=== PATIENT | male | born 1985 | race Caucasian/White ===

== ENCOUNTER 2023-07-28 14:06 | Emergency (ER) | payer OTHER, SELFPAY ==
--- NOTE | ~2023-07-28 | XR_ITS ---
EXAMINATION: XR chest 2V Exam Date/Time: 07/28/2023 14:22 AUDIO NARRATOR HISTORY: cough, congestion Comparison: 01/12/2015. RESULT: Lines, tubes, and devices: None. Lungs and pleura: Moderate diffuse reticulonodular opacities. Segmental left lower lobe airspace dis ease. Left costophrenic angle blunting. Cardiomediastinal silhouette: Stable. Other: No acute osseous or upper abdominal finding. IMPRESSION: Respiratory bronchiolitis. Segmental left lower lobe atelectasis/consolidation. Small left pleural ef fusion. Reviewed, dictated and finalized at location K. O NARRATOR IMPRESSION: Respiratory bronchiolitis. Segmental left lower lobe atelectasis/consolidation. Small left pleural effusion.
[2023-07-28 14:21] VITALS: BP 120/67; PULSE 94; RESP 18; TEMP 36.8; O2SAT 91
--- NOTE | 2023-07-28 14:54 | ED.URI ---
HPI - URI/Sore Throat General Chief Complaint: Upper Respiratory Infection Stated Complaint: Cough,Congestion Source: patient and family (Mother) Mode of arrival: ambulatory Limitations: no limitations History of Present Illness HPI Narrative: 37-year-old male presents to [facility] accompanied by his mother for complaints of cough, fatigue, shortness of breath and wheezing for the past 7-10 days. Patient has been taking [id number] ibuprofen with minimal relief. Mother reports that patient has had pneumonia in the past and has been hospitalized at [facility] in the past. Patient is a nonsmoker. Patient denies recent travel. Patient does have history of intellectual disability. MD elicited complaint: cough and other (Fatigue, shortness of breath, wheezing) Onset (ago): day(s) (-) Able to tolerate fluids by mouth: Yes Treatments prior to arrival: ibuprofen Related Data Home Medications Medication Instructions Recorded Confirmed fluoxetine 20 mg tablet 20 mg PO DAILY 07/28/23 07/28/23 olanzapine 20 mg tablet 20 mg PO HS 07/28/23 07/28/23 Allergies Allergy/AdvReac Type Severity Reaction Status Date / Time No Known Allergies Allergy Unverified 07/28/23 14:27 Review of Systems Constitutional: Constitutional: Denies chills, Reports fatigue and Denies fever(s) ENT: Denies dizziness, Denies epistaxis and Denies nasal congestion Cardiovascular: Cardiovascular: Denies chest pain Respiratory: Respiratory: Reports cough, Reports dyspnea and Reports wheezing Gastrointestinal: Gastrointestinal: Denies abdominal pain, Denies diarrhea, Denies nausea and Denies vomiting Integumentary/Breasts: Skin/Breast: Denies erythema and Denies rash Neurologic: Denies dizziness, Denies syncope and Denies headache(s) Allergic/Immunologic: Allergic/Immunologic: Denies lip swelling, Denies throat swelling and Denies tongue swelling PMFSH Comments At time of signature, I agree with nursing past medical, surgical, social and family history. There is no relevant family history pertinent to the presenting complaint. Exam Const: General: healthy appearing Nutritional Appearance: well nourished Orientation/consciousness: patient oriented x3 Limitations: other limitations (History of intellectual disability) HENMT: Head: normal to inspection Ears: external ears normal, TM's normal bilaterally and EAC's normal Mouth: Yes Normal oral and palatal mucosa present and Yes moist mucous membranes Teeth and gingiva: dentition normal Throat: posterior oropharynx normal and uvula midline Eyes: Conjunctivae: conjunctivae normal Neck: Neck: normal visual inspection Resp: Effort & Inspection: normal respiratory effort Auscultation: wheezes scattered wheezes Cardio: Rate: regular rate Rhythm: regular rhythm Heart sounds: no murmurs Skin: General skin exam: normal color Rashes: no rashes Neuro: Gait exam (Neuro): Normal gait present Psych: Attitude: cooperative Course Course Level of Care: Express Care Visit Vital Signs Vital signs: Vital Signs Temperature 36.8 C 07/28/23 14:21 Pulse Rate 94 07/28/23 14:21 Respiratory Rate 18 07/28/23 14:21 Blood Pressure 120/67 07/28/23 14:21 Pulse Oximetry 91 07/28/23 14:21 Oxygen Delivery Room Air 07/28/23 14:21 Temperature 36.8 C 07/28/23 14:21 Pulse Rate 94 07/28/23 14:21 Respiratory Rate 18 07/28/23 14:21 Blood Pressure 120/67 07/28/23 14:21 Pulse Oximetry 91 07/28/23 14:21 Oxygen Delivery Room Air 07/28/23 14:21 Transfer Transfered to: [facility] Transportation: Other (Private vehicle) Transfer rationale: Pneumonia, decreased pulse ox Accepting physician: Dr. Lui Transfer comments: Transfer form completed and signed. Called ER report was given to And charge nurse. Mother agrees to transport patient directly to ER for further evaluation. MDM - URI/Sore Throat Imaging Data Radiologist's impression:
== END 2023-07-28 15:10 | disposition short-term general hospital (02) ==
PROVIDERS: Emergency Provider Nurse Practitioner Family; PCP Emergency Medicine
DX: J18.9 Pneumonia, unspecified organism (principal); Z79.899 Other long term (current) drug therapy
CPT/HCPCS: 71046; 99213; G0463

== ENCOUNTER 2024-11-10 12:51 | Emergency (ER) | payer MEDICARE, MEDICAID, SELFPAY ==
--- NOTE | ~2024-11-10 | XR_ITS ---
EXAMINATION: XR chest 2V DATE: 11/10/2024 13:26 INDICATION: Cough. Chest congestion. TECHNIQUE: Frontal and lateral views of the chest were obtained. COMPARISON: Chest 2 views 07/28/2023 FINDINGS: There are airspace opacities in left mid and lower lung zones. No pleural effusion or pneum othorax. The heart size is normal. IMPRESSION: 1. Airspace opacities in left mid and lower lung zones, consistent with pneumonia. Reviewed, dictated and finalized at location B. IMPRESSION: 1. Airspace opacities in left mid and lower lung zones, consistent with pneumon ia.
[2024-11-10 13:06] VITALS: BP 115/62; PULSE 86; RESP 20; TEMP 36.7; O2SAT 96
[2024-11-10] MEDS: IPRATROPIUM 0.5 MG/ALBUTEROL SULFATE 2.5 MG AMPUL.NEB 3 ML INHALATION (13:25)
[2024-11-10 13:45] VITALS: O2SAT 97
--- NOTE | 2024-11-10 13:51 | ED_ITS ---
HPI - URI/Sore Throat General Chief Complaint: Upper Respiratory Infection Stated Complaint: fever and ear ache Time Seen by Provider: 11/10/24 12:54 Source: patient and family Mode of arrival: ambulatory Limitations: no limitations History of Present Illness HPI Narrative: Chiki is a 39-year-old male patient presenting to the clinic today with complaints of fever, cough, left earache, and chest congestion. Mother reports he has had fever and chest congestion for the past week. Started complaining of a left earache over the last 1-2 days. Denies any chest pain. Is audibly wheezing and congested MD elicited complaint: cough, rhinorrhea and nasal congestion Related Data Home Medications ?Medication ?Instructions ?Recorded ?Confirmed ?Last Taken ?Type fluoxetine 20 mg tablet 20 mg PO DAILY 07/28/23 07/28/23 Unknown History olanzapine 20 mg tablet 20 mg PO HS 07/28/23 07/28/23 Unknown History Allergies Allergy/AdvReac Type Severity Reaction Status Date / Time No Known Allergies Allergy Verified 11/10/24 13:07 Review of Systems Review of Systems: Pertinent positives per HPI. Patient denies any rash, headache, visual changes, dizziness, shortness of breath, chest pain, palpitations, nausea, vomiting, diarrhea, constipation, abdominal pain, or any urinary issues. PMFSH Comments At the time of my signature, I reviewed and agree with the nursing past medical, surgical, social, and family history. There is no relevant family history pertinent to the patient complaint. Exam Narrative: General: Well-developed, well nourished, in no apparent distress Head: Normocephalic, atraumatic Eyes: Pupils equally round and reactive to light bilaterally, EOM intact, sclera and conjunctive clear, no discharge, lids normal Ears: Right TM intact and clear, unable to visualize left TM due to bubbled fluid up against the TM with redness and swelling to the left ear canal, right ear canals clear, grossly hearing normal. Nose: Nares patent, clear nasal discharge, no inflammation, no sinus tenderness. Mouth: Oral pharynx without lesions or masses, good dentition, MMM. Neck: Supple, trachea midline, no enlargement of anterior or posterior cervical nodes, no thyroid masses or goiter palpable. Cardio: Regular rate and rhythm, s1 and s2 normal, no murmur appreciated. Resp: Rhonchi and wheezing throughout lung hardwick, no rales or rubs Course Course Emergency Course: Portions of this record may have been created with voice recognition software. Level of Care: Express Care Visit Vital Signs Vital signs: Vital Signs Temperature 36.7 C 11/10/24 13:06 Pulse Rate 86 11/10/24 13:06 Respiratory Rate 20 11/10/24 13:06 Blood Pressure 115/62 11/10/24 13:06 Pulse Oximetry 96 11/10/24 13:06 Oxygen Delivery Room Air 11/10/24 13:06 Temperature 36.7 C 11/10/24 13:06 Pulse Rate 86 11/10/24 13:06 Respiratory Rate 20 11/10/24 13:06 Blood Pressure 115/62 11/10/24 13:06 Pulse Oximetry 97 11/10/24 13:45 Oxygen Delivery Room Air 11/10/24 13:45 Vital signs reviewed MDM - URI/Sore Throat MDM Narrative Medical decision making narrative: At the time of visit patient is resting comfortably on the exam table. Patient appears to be nontoxic. Medications: DuoNeb treatment given in the clinic today Diagnostics: Chest x-ray shows left mid and lower lung zones-pneumonia Plan: I suspect patient has otitis media, otitis externa, and pneumonia. Prescription for ofloxacin ear drops, albuterol inhaler, albuterol solution for nebulizer, azithromycin, and Augmentin was sent to the pharmacy. Supportive measures were discussed with the patient and they voiced understanding discharge instructions and agrees to treatment plan. Return precautions reviewed Differential Diagnosis Differential diagnosis: Likely upper respiratory infection, otitis media, sinusitis, viral infection, bronchitis, influenza, pharyngitis and other (COVID) Imaging Data Radiologist's impression: ITS Impressions Chest X-Ray 11/10/24 13:29 IMPRESSION: 1. Airspace opacities in left mid and lower lung zones, consistent with pneumonia. Discharge Plan Discharge Clinical Impression: Left otitis media with spontaneous rupture of eardrum Pneumonia Qualifiers: Pneumonia type: due to unspecified organism Laterality: left Lung location: unspecified part of lung Qualified Code(s): J18.9 - Pneumonia, unspecified organism Otitis externa Qualifiers: Otitis externa type: diffuse Chronicity: acute Laterality: left Qualified Code(s): H60.312 - Diffuse otitis externa, left ear Patient Disposition: Home, Self-Care Condition: Stable Instructions: Antibiotic Form, Ear Infection (ED), Pneumonia (ED) Additional Instructions: X-ray shows left mid and lower lung zone pneumonia DuoNeb breathing treatment was given in the clinic today. Purchase a pulse oximeter and keep oxygen saturations 92% or above- If below go to the ER. Take prescription medications only as prescribed-albuterol sulfate(inhaler/solution), ofloxacin ear drops,amoxicillin, and azithromycin Increase fluids and stay well hydrated Tylenol/motrin for pain/fever Flonase and OTC antihistamines as directed Vicks vapor rub to open sinuses Sinus rinses for congestion Cepacol spray, cough drops, throat lozenges, warm tea with honey/lemon, gargle salt water to soothe throat BRAT diet for diarrhea Clear liquids x 24 hours then advance as tolerated for nausea/vomiting Go to the ED if you develop a worsening in your condition- high fever not controlled by Tylenol or Motrin, dehydration, weakness, lethargy, shortness of breath, or chest pain. Follow up with your PCP in 3-5 days if symptoms persist. Patient Language: Croatian Prescriptions: New albuterol sulfate 90 mcg/actuation HFA aerosol inhaler 2 puff inhalation Q4-6H PRN (Reason: shortness of breath or wheezing) 30 Days Qty: 8.5 0RF (DME) Space Chamber Spacer See Rx Instructions .ROUTE .MEDSUPPLY Qty: 1 0RF Rx Instructions: As directed amoxicillin-pot clavulanate 875-125 mg tablet 1 tablet PO Q12H 10 Days Qty: 20 0RF azithromycin 250 mg tablet See Rx Instructions .ROUTE .COMPLEX Qty: 6 0RF Rx Instructions: For 250 mg dose pack: take 500 mg today (day 1), then 250 mg for 4 days (days 2-5) albuterol sulfate 2.5 mg /3 mL (0.083 %) solution for nebulization 2.5 mg inhalation Q4H PRN (Reason: shortness of breath or wheezing) 30 Days Qty: 90 0RF ofloxacin 0.3 % drops 5 drp otic (ear) BID 7 Days Qty: 5 0RF No Action fluoxetine 20 mg tablet 20 mg PO DAILY olanzapine 20 mg tablet 20 mg PO HS Follow-up/Referrals: Baljit,NAZARIO Barrett [Primary Care Provider] - Waldemar Almeida MD [Physician] - 2 Days (left otitis media with poss spontaneous rupture TM) Time of Disposition: 13:40 Quality NIHSS Nursing Documentation ED NIHSS nursing documentation: reviewed/agree
--- OUTSIDE RECORDS SUMMARY | 2024-11-10 14:47 | XMS_ITS | Clinical Summary ---
Author Organization [facility] Address [address] [place] [address] Care Team Providers Care Community Mental Health Social Worker Name Role Phone eRed Schulz MD Primary Care Provider Source Comments [facility],non-owned Affiliates and Associated Physician Practices is amultiple site organization consisting of ambulatory clinics and hospital sitesin [place], [place], [place] and [place]. This disclosure is being madepursuant to the Care Everywhere program and may not contain all information available regarding this patient. Last updated 18.[facility] Save22 Active Problems Problem Noted Date Diagnosed Date Intellectual disability 04/30/2018 Social History Tobacco Use Types Packs/Day Years Used Date Smoking Tobacco: Never Assessed Sex and Gender Information Value Date Recorded Sex Assigned at Not on file Gender Identity Not on file Sexual Orientation Not on file Plan of Treatment Health Maintenance Due Date Last Done Comments LIPID TESTING 1984 HIV SCREENING 1999 HEPATITIS C SCREENING 10/27/2002 DTAP/TDAP/TD VACCINES (1 - Tdap) 2003 HEPATITIS B VACCINE (1 of 3 - 19+ 3-dose series) 2003 COVID-19 VACCINE ( - 2023-2 5 season) 2024 INFLUENZA VACCINE (#1) 2024 DEPRESSION SCREENING 09/03/2024 ZOSTER VACCINE (1 of 2) 2034 HIB VACCINE Aged Out No longer eligi ble based on patient's age to complete this topic HPV VACCINE Aged Out No longer eligi ble based on patient's age to complete this topic MENINGOCOCCAL (Group B) VACCINE Aged Out No longer eligible based on patient's age to complete this topic MENINGOCOCCAL VACCINE Aged Out No xenia ranjith eligible based on patient's age to complete this topic PNEUMOCOCCAL VACCINE Aged Out No long er eligible based on patient's age to complete this topic Care Teams Community Mental Health Social Worker Relationship Specialty Start Date End Date Reed Schulz MD [address] [place] [address] PCP - General Family Medicine 04/30/18
--- OUTSIDE RECORDS SUMMARY | 2024-11-10 14:47 | XMS_ITS | Referral Summary ---
Author Organization [facility] Address [address] [place] [address] Care Team Providers Care Pneumatic Hoist Operator Name Role Phone Reed Schulz MD Primary Care Provider [phone] Source Comments [facility],non-owned Affiliates and Associated Physician Practices is amultiple site organization consisting of ambulatory clinics and hospital sitesin [place] and [place]. This disclosure is being madepursuant to the Care Everywhere program and may not contain all information available regarding this patient. Last updated 18.[facility] Active Problems Problem Noted Date Diagnosed Date Intellectual disability 04/30/2018 Social History Tobacco Use Types Packs/Day Years Used Date Smoking Tobacco: Never Assessed Sex and Gender Information Value Date Recorded Sex Assigned at Not on file Gender Identity Not on file Sexual Orientation Not on file Plan of Treatment Not on file Care Teams Pneumatic Hoist Operator Relationship Specialty Start Date End Date Reed Schulz MD [address] [facility] [address] [place] [address] PCP - General Family Medicine 04/30/18
--- OUTSIDE RECORDS SUMMARY | 2024-11-10 14:47 | XMS_ITS | Referral Summary ---
Author Organization [facility] Address [address] [place] [address] Care Team Providers Care Adjunct Faculty Name Role Phone Nena Smiley Primary Care Provider [phone] Allergies No known active allergies Medications FLUoxetine (PROzac) 20 mg capsule Take 1 capsule (20 mg total) by mouth daily Active OLANZapine (ZyPREXA) 20 mg tablet Take 1 tablet (20 mg total) by mouth nightly Active albuterol HFA (ProAir HFA) 90 mcg/actuation inhaler Inhale 2 puffs every 4 (four) hours as needed for wheezing or shortness of breath 8.5 g 5 3 Active Active Problems Problem Noted Date Diagnosed Date Dysarthria 09/20/2023 Aspiration into airway 09/13/2023 Oropharyngeal dysphagia 09/13/2023 Pneumonia of both lungs due to infectious organi sm 07/28/2023 CAP (community acquired pneumonia) 07/28/2023 Immunizations Immunization Administration Dates Next Due Influenza, Quadrivalent, Spl it, Preservative Free, Intramuscular 08/06/2023 Social History Tobacco Use Types Packs/Day Years Used Date Smoking Tobacco: Never Smokeless Tobacco: Never Tobacco Cessation:Counseling Given: Not Answered [facility] Utilities Answer Date Recorded In the past 12 months has [employer], gas, oil, or water company threatened to shut off services in your home? No 07/30/2023 Social Connection and Isolat ion Panel [NHANES] Answer Date Recorded In a typical week, how many times do you talk on the phone with family, friends, or neighbors? More than three times a week 07/30/2023 How often do you get togethe r with friends or relatives? More than three times a week 07/30/2023 How often do you attend chur ch or voodoo services? Never 07/30/2023 Do you belong to any clubs o r organizations such as catholic groups, unions, fraternal or athletic groups, or school groups? No 07/30/2023 How often do you attend meet ings of the clubs or organizations you belong to? Never 07/30/2023 Are you , , di vorced, , never , or living with a partner? Never 07/30/2023 Overall Financial Resource Strain (CARDIA) Answe r Date Recorded How hard is it for you to pa y for the very basics like food, housing, medical care, and heating? Not hard at all 07/30/2023 Hunger Vital Sign Answer Date Recorded Within the past 12 months, y ou worried that your food would run out before you got the money to buy more. Never true 07/30/20 23 Within the past 12 months, t he food you bought just didn't last and you didn't have money to get more. Never true 07/30/2023 PRAPARE - Transportation Answer Date Re corded In the past 12 months, has l ack of transportation kept you from medical appointments or from getting medications? No 07/05 In the past 12 months, has l ack of transportation kept you from meetings, work, or from getting things needed for daily living? No 07/30/2023 Housing Stability Vital Sign Answer Hugo e Recorded In the last 12 months, was t here a time when you were not able to pay the mortgage or rent on time? No 07/30/2023 In the last 12 months, how many places have you lived? 1 07/30/2023 In the last 12 months, was t here a time when you did not have a steady place to sleep or slept in a mcfp (including now)? No 07/30/2023 Personal Safety Answer Date Recorded Have you ever been in or are you currently in a harmful physical or emotional relationship or is someone making you feel afraid or unsafe? Denies 07/28/2023 Sex and Gender Information Value Date Recorded Sex Assigned at Not on file Legal Sex Male 7:01 PM SALES PROJECT ADMINISTRATOR Gender Identity Not on file Sexual Orientation Not on file Last Filed Vital Signs Vital Sign Reading Time Taken Comments Blood Pressure 118/70 08/21/2023 10:45 AM SALES PROJECT ADMINISTRATOR Pulse 64 08/21/2023 10:45 AM SALES PROJECT ADMINISTRATOR Temperature 36.2 C (97.1 F) 08/21/2023 10:45 AM SALES PROJECT ADMINISTRATOR Respiratory Rate 18 08/21/2023 10:45 AM SALES PROJECT ADMINISTRATOR Oxygen Saturation 98% 08/21/2023 10:45 AM SALES PROJECT ADMINISTRATOR Inhaled Oxygen Concentration - - Weight 90.3 kg (199 lb) 08/21/2023 10:45 AM SALES PROJECT ADMINISTRATOR Height 185.4 cm (6' 1 ) 08/21/2023 10:45 AM SALES PROJECT ADMINISTRATOR Body Mass Index 26.25 08/21/2023 10:45 AM SALES PROJECT ADMINISTRATOR Plan of Treatment Not on file Insurance [facility] Advance Directives For more information, please contact: [phone] * Full Code (Latest Code Status on File) Date Activated Date Inactivated Comments 07/28/2023 6:27 PM 08/06/2023 6:44 PM Care Teams Adjunct Faculty Relationship Specialty Start Date End Date [facility] Sm[facility] [address] PCP - General Physician Leasing Consultant 09/03/23
--- OUTSIDE RECORDS SUMMARY | 2024-11-10 14:47 | XMS_ITS | Clinical Summary ---
Author Organization [facility] Address [address] [place] [address] Care Team Providers Care Director Corporate Compliance Name Role Phone Nena Smiley Primary Care Provider [phone] Allergies No known active allergies Medications FLUoxetine [...] Quadrivalent, Spl it, Preservative Free, Intramuscular 08/06/2023 Medical History Medical History Date Comments Autism disorder Vitamin D deficiency Anemia Pneumonia Pneumonia of both lungs due to infectious organi sm 07/28/2023 Cri-du-chat syndrome Family History Medical History Relation Name Comments No Known Problems Brother No Known Problems Father No Known Problems Mother Relation Name Status Comments Brother Alive Father Alive Mother Alive Social History Tobacco Use Types Packs/Day Years Used Date Smoking Tobacco: Never Smokeless Tobacco: Never Tobacco Cessation:Counseling Given: Not Answered [facility] Utilities Answer Date Recorded In the past 12 months has [employer], gas, oil, or water [employer] threatened to shut off services in your [...] often do you attend chur ch or jain services? Never 07/30/2023 Do you belong to any clubs o r organizations such as mormon groups, unions, fraternal or athletic groups, or [...] place to sleep or slept in a fdc (including now)? No 07/30/2023 Personal Safety Answer Date Recorded Have you ever been in or are you currently in a harmful physical or emotional relationship or is someone making you feel afraid or unsafe? Denies 07/28/2023 Sex and Gender Information Value Date Recorded Sex Assigned at Not on file Legal Sex Male 7:01 PM SHRIMP BOAT CAPTAIN Gender Identity Not on file Sexual Orientation Not on file Obstetrics History Last Filed Vital Signs Vital Sign Reading Time Taken Comments Blood Pressure 118/70 08/21/2023 10:45 AM SHRIMP BOAT CAPTAIN Pulse 64 08/21/2023 10:45 AM SHRIMP BOAT CAPTAIN Temperature 36.2 C (97.1 F) 08/21/2023 10:45 AM SHRIMP BOAT CAPTAIN Respiratory Rate 18 08/21/2023 10:45 AM SHRIMP BOAT CAPTAIN Oxygen Saturation 98% 08/21/2023 10:45 AM SHRIMP BOAT CAPTAIN Inhaled Oxygen Concentration - - Weight 90.3 kg (199 lb) 08/21/2023 10:45 AM SHRIMP BOAT CAPTAIN Height 185.4 cm (6' 1 ) 08/21/2023 10:45 AM SHRIMP BOAT CAPTAIN Body Mass Index 26.25 08/21/2023 10:45 AM SHRIMP BOAT CAPTAIN Plan of Treatment Health Maintenance Due Date Last Done Comments Depression Screening 1984 Hepatitis C Screening 1984 DTaP/Tdap/Td Vaccine (1 - Tdap) 1995 Varicella Vaccines (1 of 2 - 13+ 2-dose series) 1997 Hepatitis B Screening 2002 Regular Well Visit/Exam 18-64 2002 Covid-19 Vaccine ( season) 2024 03/23/2022, 08/25/2021, 11/23/2020, Additional history exists Influenza Vaccine (#1) 2024 3, 07/17/2022, 06/23/2021, Additional history exists Pneumococcal vaccine <65 Aged Out 03/23/2022 No longer eligible based on patient's age to complete this topic HPV Vaccines Aged Out No longer eligi ble based on patient's age to complete this topic Insurance [facility] Advance Directives For more information, please contact: [phone] * Full Code (Latest Code Status on File) Date Activated Date Inactivated Comments 07/28/2023 6:27 PM 08/06/2023 6:44 PM Care Teams Director Corporate Compliance Relationship Specialty Start Date End Date Nena Smiley PA [address] [place] [id number] PCP - General Physician Roof Cement And Paint Maker Helper 09/03/23
--- OUTSIDE RECORDS SUMMARY | 2024-11-10 14:47 | XMS_ITS | Patient Health Summary ---
Author Organization [facility] Address [address] [place] [address] Care Team Providers Care [employer] Name Role Phone Reed Schulz MD Primary Care Provider [phone] Note from [facility],non-owned Affiliates and Associated Physician Practices is amultiple site organization consisting of ambulatory clinics and hospital sitesin [place], [place], [place] and [place]. This disclosure is being madepursuant to the Care Everywhere program and may not contain all information available regarding this patient. Last updated 18.[facility] Active Problems Problem Noted Date Diagnosed Date Intellectual disability 04/30/2018 Social History Tobacco Use Types Packs/Day Years Used Date Smoking Tobacco: Never Assessed Sex and Gender Information Value Date Recorded Sex Assigned at Not on file Gender Identity Not on file Sexual Orientation Not on file Procedures * CYTOGENETICS PANEL(Performed 04/30/2018) Performed for Intellectual disability Results * CYTOGENETICS PANEL (04/30/2018 1:15 PM CDT) Addendum 1 Cytogenetics This is an addendum to document the FISH results of 5p/5q subtelomere probes: Results for 5pdeletion: Fluorescence In-Situ Hybridization (FISH): Analysis of 20 metaphase and 50 interphase cells hybridized to a dual labeled 5p/5q subtelomeric specific fluorescent probes showed the following results: Vikas(6vbgxoywt7,5qsub telx2) Abnormal Interpretation: FISH of 5p/5q subtelomere probes were performed on 20 metaphase and 50 interphase cells. FISH results showed one signal of 5p subtelomere and 2 signals of 5q subtelomere probes in all cells. 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 The 4p terminus gain was confirmed by WHS probes as documented below. Disclaimer: *This test was developed, and its performance characteristics determined by [facility] as required by CLIA '88 Regulations. It has not been cleared or approved for specific uses by the U.S. Food and Drug Administration. The FDA has determined that such clearance or approval is not necessary. This test is used for clinical purposes. It should not be reported as investigational or for research. 8 12:06 PM [facility] Addendum electronically signed by Cordelia Pearson, PhD [facility] on 05/13/2018 at 12:06 PM Indication for Study Intellectual Disability 8 12:06 PM [facility] Results Cytogenetics Patient and control DNA were labeled with different fluorescent tags and hybridized onto [employer] 4-plex oligo-SNP [employer]-19. Array-CGH analysis of both DNAs revealed two clinically significant deviations indicating a deletion and a duplication but no absence of heterozygosity (AOH): arr[GRCh37] 4p16.3p16.1([id number])x3,5p15.33p15. 31([id number])x1 Abnormal Male .................. Analysis and count of 5 cells (6 cells karyotyped, GTL-banding) from two different types of stimulated peripheral blood cultures showed the following chromosome pattern and FISH of dual labeled probes*: WHS/CEP4 directed onto 4p16 and 4 centromere showed the following results: 46,XY,cora(5)t(4;5)(p 16.1;p13.1). 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 Array-CGH using [employer] 4-plex oligo-SNP 180K/hg-19 revealed two clinically significant abnormalities for the regions included on the current version: Abnormality 1 -- CGH -- 4p16.3-p16.1 -- 7.84 Mb Copy Gain This abnormality is characterized by a copy gain of 362 oligonucleotide probe(s) in the region of 4p16.3-p16.1. This abnormality is estimated to be a minimum size of 7.84 Mb and a maximum size of 7.91 Mb due to gaps in the regions represented on the microarray. This abnormality has been classified as a terminal gain. The duplication encompasses 66 OMIM genes: CZD377, RYAN, PDE6B, ATP5I, MYL5, PCGF3, CPLX1, GAK, KETI325, DGKQ, UHL17M2, IDUA, FGFRL1, NED296, SPON2, CTBP1, MAEA, UVSSA, CRIPAK, FAM53A, SLBP, BDJW789, TACC3, FGFR3, LETM1, NSD2, NELFA, I8xzd49, NAT8L, POLN, HAUS3, ZFYVE28, RNF4, TNIP2, SH3BP2, ADD1, MFSD10, NOP14, GRK4, HTT, RGS12, HGFAC, DOK7, LRPAP1, ADRA2C, OTOP1, LYAR, ZBTB49, NSG1, STX18, MSX1, CYTL1, EVC2, EVC, CRMP1, JAKMIP1, WFS1, HMX5N1A, MRFAP1, S100P, TNWA8U8, NUX9F05, TADA2B, GRPEL1, SORCS2, AFAP1 The duplication is associated with 4p16 microduplication syndrome Abnormality 2 -- CGH -- 5p15.33-p15.31 -- 8.36 Mb Copy Loss This abnormality is characterized by a copy loss of 533 oligonucleotide probe(s) in the region of 5p15.33-p15.31. This abnormality is estimated to be a minimum size of 8.36 Mb and a maximum size of 8.45 Mb due to gaps in the regions represented on the microarray. This abnormality has been classified as a terminal loss. The deletion encompasses 33 OMIM genes: SDHA, PDCD6, AHRR, EXOC3, SLC9A3, CEP72, TPPP, TRIP13, NKD2, HLT59D6, IRV6F91, ZGU1D38, TERT, YPCEI6H, SLC6A3, LPCAT1, MRPL36, NDUFS6, IRX4, LSINCT5, IRX2, H4tqi71, IRX1, BKURPP34, MED10, BSA7VE7, KXVU86518, NSUN2, SRD5A1, PAPD7, ADCY2, FASTKD3, MTRR. 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 This was confirmed by a conventional chromosome and FISH analyses showing a derivative chromosome 5 that has a gain of WHS probe. Based on G-banding patterns and size of the aberrations, the translocation is considered cryptic. Therefore, parental chromosomes and FISH analyses would be needed to determine whether the derivative chromosome 5 reported here is the result of an unbalanced segregation of a parental translocation. Based on a cohort of 286 individuals, 5p deletions are most commonly de joann occurrences with 10 to 15% being the result of an unbalanced parental translocation. Based on this study, the phenotype of 5p deletion has a large spectrum from mild to severe phenotype including the well-known Cri-du-Chat syndrome (Am J Med Shreya C Semin Med Shreya. 2015 May; 169(3): 224-238). 4p16.3 microduplication syndrome are associated with neurodevelopmental problems (Am J Med Shreya A. 2016 Jun;170(10):6145-49) . Genetic counseling is highly recommended. 8 12:06 PM [facility] Electronically signed by Cordelia Pearson, PhD [facility] on 05/10/2018 at 12:13 PM Disclaimer *This test was developed, and its performance characteristics determined by [facility] as required by CLIA '88 Regulations. It has not been cleared or approved for specific uses by the U.S. Food and Drug Administration. The FDA has determined that such clearance or approval is not necessary. This test is used for clinical purposes. It should not be reported as investigational or for research. 8 12:06 PM [facility] Comment Variants were identified and found to be benign. A duplication of less than 500 kb and a deletion of less than 50kb or involving less than 4 probes and found in the database of genome variants that contains no known gene would be considered a benign variant at this point. A duplication of less than 500 kb that contains part of a gene found duplicated in the database of genome variants would also be considered a benign variant at this point. Absence of heterozygosity (AOH) of a less than 10Mb and a deletion of less than or equal to 3 oligonucleotides will not be reported with some exceptions. Parameters set in the calculation of AOH: 1- Short regions of AOH up to 5Mb are considered ancesteral markers of an outbred population and therefore not included in the calculation of the whole autosomal AOHs. 2- The presence of a single large AOH or a couple of large AOH on the same chromosome most likely indicates Uniparental disomy (UPD), especially if AOH is telomeric. 3- Multiple large AOH spread across different chromosomes is correspondence representative of a parental blood relationship. Array-CGH does not detect balanced translocations, inversions, low level mosaicism or balanced insertions. In addition, gene abnormalities of a size less than 10 Kb and imprinting defects can't be ruled out by this assay. 8 12:06 PM CDT [facility] Embedded Images 8 12:06 PM CDT [facility] Other BLOOD SPECIMEN / Unknown 04/30/2018 1:15 PM CDT 04/30/2018 4:42 PM CDT Alberta Gilliland MD LAB - PATHOLOGY/CYTO LOGY ORDERABLES [facility] [address] [place] [address] Care Teams [employer] Relationship Specialty Start Date End Date Reed Schulz MD [address] [id number] PCP - General Family Medicine 04/30/18
--- OUTSIDE RECORDS SUMMARY | 2024-11-10 14:48 | XMS_ITS | Continuity of Care Document ---
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 Name Role Phone Reed Schulz MD Unavailable Unavailable Allergies, Adverse Reactions, Alerts Substance Reaction Status Criticality No Known Allergies Active No Inform ation Medications Medication Instructions Dosage Effective Dates (start - stop) Status Comments Zyprexa 20 mg tablet take 1 tablet by oral route every bedtime 20 MG - Active fluoxetine 20 mg tablet take 1 tablet by oral route every day in the morning 20 MG - Active Xanax 0.5 mg tablet take 1 tablet by oral route every 4 - 6 hours as needed 0.5 MG - Active PRN for anxiet y, avoid driving or operate machines Procedures Procedure Date OFFICE/OUTPATIENT VISIT, EST PREV VISIT, EST, AGE 18-39 OFFICE/OUTPATIENT VISIT, EST OFFICE/OUTPATIENT VISIT, EST PREV VISIT, EST, AGE 18-39 OFFICE/OUTPATIENT VISIT, EST PREV VISIT, EST, AGE 18-39 PREV VISIT, EST, AGE 18-39 PREV VISIT, EST, AGE 18-39 PREV VISIT, EST, AGE 18-39 PREV VISIT, EST, AGE 18-39 OFFICE/OUTPATIENT VISIT, EST PREV VISIT, EST, AGE 18-39 OFFICE/OUTPATIENT VISIT, EST OFFICE/OUTPATIENT VISIT, EST OFFICE/OUTPATIENT VISIT, EST OFFICE/OUTPATIENT VISIT, EST OFFICE/OUTPATIENT VISIT, EST OFFICE/OUTPATIENT VISIT, EST PREV VISIT, NEW, AGE 18-39 Advance Directives Directive Yes / No Effective Date File Name No Information Encounters Encounter Description Practice Location Reason(s) For Visit Diagnoses Date Provider Providers Copied on Encounter [facility], [place], [facility], [address], [place], [place], [address], [place] tel:[phone] [facility] No Information 3 Zeus Mcbride. [address], [place], [place], [address] , [place]. tel:[phone] OFFICE/OUTPA TIENT VISIT, EST [facility], [place], [facility], [address], [place], [place], [address], [place] tel:[phone] [facility] platelet1 (chief complaint) ThrombocytopeniaAne araseli 3 Zeus Parra [address], [place], [place], [address] , [place]. tel:[phone] PREV VISIT, EST, AGE 18-39 [facility], [place], [facility], [address], [place], [place], [address], [place] tel:[phone] [facility] physical (chief complaint) Encounter for general adult medical examination without abnormal findings 3 Zeus Mcbride. [address], [place], [place], [address] , [place]. tel:[phone] OFFICE/OUTPA TIENT VISIT, EST [facility], [address], [place], [place], [address], [place] tel:[phone] [facility] anxiety1 (chief complaint) Generalized Anxiety Disorder 3 Zeus Mcbride. [address], [place], [place], [address] , [place]. tel:[phone] OFFICE/OUTPA TIENT VISIT, [facility], [address], [place], [place], [address], [place] tel:[phone] [facility] COVID (chief complaint) Viral infection 2 Zeus Mcbride. [address], [place], [place], [address] , [place]. [phone] PREV VISIT, EST, AGE 18-39 [facility], [place], [facility], [address], [place], [place], [address], [place] tel:[phone] [facility] physical (chief complaint) Encounter for general adult medical examination without abnormal findings 2 Zeus Mcbride. [address], [place], [place], [address] , [place]. [phone] OFFICE/OUTPA TIENT VISIT, EST [facility], [place], [facility], [address], [place], [place], [address], [place] tel:[phone] [facility], [place], [facility] anxiety1 (chief complaint) anemia1 (chief complaint) platelet1 (chief complaint) AnemiaThrombocytope niaGeneralized Anxiety Disorder 2 Zeus Mcbride. [address], [place], [place], [address] , [place]. tel:[phone] PREV VISIT, EST, AGE 18-39 [facility], [place], [facility], [address], [place], [place], [address], [place] tel:[phone] [facility] physical (chief complaint) Encounter for general adult medical examination without abnormal findings 1 Zeus Mcbride. [address], [place], [place], [address] , [place]. [phone] PREV VISIT, EST, AGE 18-39 [facility], [place], [facility], [address], [place], [place], [address], [place] tel:[phone] [facility], [place], [facility] Physical (chief complaint) Encntr for general adult medical exam w/o abnormal findings 0 Zeus Mcbride. [address], [place], [place], [address] , [place]. tel:[phone] PREV VISIT, EST, AGE 18-39 [facility], [address], [place], [place], [address], [place] tel:[phone] [facility] PHysical (chief complaint) Encntr for general adult medical exam w/o abnormal findings Dec-0 5- 9 Zeus Mcbride. [address], [place], [place], [address] , [place]. tel:[phone] Referring Provider: Corry Cochran [address], [place], [place], [address]. tel:[phone] PREV VISIT, EST, AGE 18-39 [facility], [place], [facility], [address], [place], [address], [place] tel:[phone] [facility] PHysical (chief complaint) Encntr for general adult medical exam w/o abnormal findings Nov-2 6- 8 Zeus Mcbride. [address], [place], [place], [address] , [place]. tel:[phone] Referring Provider: Corry Cochran [address], [place], [place], [address]. tel:[phone] PREV VISIT, EST, AGE 18-39 [facility], [place], [facility], [address], [place], [place], [address], [place] tel:[phone] [facility] PHysical (chief complaint) Encntr for general adult medical exam w/o abnormal findings Nov-09 07- 7 Zeus Mcbride. [address], [place], [place], [address] , [place]. tel:[phone] Referring Provider: Corry Cochran [address], [place], [place], [address]. tel:[phone] OFFICE/OUTPA TIENT VISIT, EST [facility], [place], [facility], [address], [place], [place], [address], [place] tel:[phone] [facility] fatigue1 (chief complaint) vitamin D (chief complaint) cough (chief complaint) FatigueSleep apneaInterstitial lung diseaseVitamin D deficiency, unspecified Dec- 8-201 6 Zeus Mcbride. [address], [place], [place], [address] , [place]. [phone] Referring Provider: Corry Cochran [address], [place], [place], [address]. tel:[phone] PREV VISIT, EST, AGE 18-39 [facility], [place], [facility], [address], [place], [place], [address], [place] tel:[phone] [facility] Physical (chief complaint) Encounter for general adult medical exam w abnormal findingsAcute bronchitisAnemiaAut istic disorder 6 Zeus Mcbride. [address], [place], [address] , [place]. [phone] Referring Provider: Corry Cochran [address], [place], [place], [address]. tel:[phone] OFFICE/OUTPA TIENT VISIT, [facility], [facility] [address], [place], [place], [address], [place] tel:[phone] [facility] [place], [facility] cough (chief complaint) Acute bronchitisDietary surveillance and counseling 5 eZus Mcbride. [address], [place], [place], [address] , [place]. [phone] Referring Provider: Corry Cochran [address], [place], [place], [address]. tel:[phone] OFFICE/OUTPA TIENT VISIT, [facility], [address], [place], [address], [place] tel:[phone] [facility] [place] lung scar (chief complaint) hematuria (chief complaint) autism (chief complaint) Abnormal chest xrayAutistic disorder, current or active stateBlood pressure elevated 5 Zeus Mcbride. [address], [place], [place], [address] , [place]. [phone] Referring Provider: Corry Cochran [address], [place], [place], [address]. tel:[phone] OFFICE/OUTPA TIENT VISIT, [facility], [address], [place], [place], [address], [place] tel:[phone] [facility] [place], [facility] pneumonia (chief complaint) anemia (chief complaint) PneumoniaAnemiaUnsp ecified vitamin d deficiencyDietary surveillance and counseling 5 Zeus Mcbride. [address], [place], [place], [address] , [place]. tel:[phone] Referring Provider: Reed Schulz, [address], [place], [place], [address]. tel:[phone] OFFICE/OUTPA TIENT VISIT, [facility], [address], [place], [place], [address], [place] tel:[phone] [facility] [place], [facility] pneumonia (chief complaint) autism (chief complaint) anemia (chief complaint) Dietary surveillance and counselingAnemiaAut istic disorder, current or active statePneumonia 5 Zeus Mcbride. [address], [place], [place], [address] , [place]. tel:[phone] Referring Provider: Corry Cochran [address], [place], [place], [address]. tel:[phone] OFFICE/OUTPA TIENT VISIT, [facility], [address], [place], [place], [address], [place] tel:[phone] [facility] [place], [facility] anemia (chief complaint) vitamin D (chief complaint) TG (chief complaint) autism (chief complaint) AnemiaOther and unspecified hyperlipidemiaUnspe cified vitamin d deficiencyAutistic disorder, current or active stateDietary surveillance and counseling 4 Zeus Mcbride. [address], [place], [place], [address] , [place]. tel:[phone] Referring Provider: Corry Cochran [address], [place], [place], [address]. tel:[phone] PREV VISIT, NEW, AGE 18-39 [facility], [place], [facility], [address], [place], [place], [address], [place] tel:[phone] [facility] Physical (chief complaint) Dietary surveillance and counselingRoutine Medical ExamRoutine Medical Exam Gio Parra [address], [place], [place], [address] , [place]. tel: [phone] Family History Family Member Type Diagnosis Age At Onset Mother Problem (finding) Alive and well Brother Problem (finding) Alive and well Father Problem (finding) Alive and well Payers Payer name Insurance type Covered democrat ID Authoriza tion(s) No Information Social History Type Description Quantity Date Captured Comments Alcohol Use Details Unknown Caffeine Use Details Unknown Tobacco Use Status No Information Smoking Status No Information Sex Male Chief Complaint And Reason For Visit No Information Plan Of Treatment Date Type Action Status Goal Influenza vaccine. Due on De due Goal Depression screening. Due on due Goal Td vaccine. Due on due Goal Tdap. Due on due Goal Tdap. Due on due Goal Influenza vaccine. Due on due Goal Depression screening. Due on due Goal Td vaccine. Due on due Goal Influenza vaccine. Due on due Goal Tdap. Due on due Goal Td vaccine. Due on due Goal Depression screening. Due on due Goal Tdap. Due on due Goal Influenza vaccine. Due on due Goal Td vaccine. Due on due Goal Depression screening. Due on due Goal Depression screening. Due on due Goal Td vaccine. Due on due Goal Influenza vaccine. Due on due Goal Tdap. Due on due Goal Influenza vaccine. Due on due Goal Td vaccine. Due on due Goal Depression screening. Due on due Goal Tdap. Due on due Goal Tdap. Due on due Goal Influenza vaccine. Due on due Goal Td vaccine. Due on due Goal Depression screening. Due on due Goal Influenza vaccine. Due on due Goal Depression screening. Due on due Goal Td vaccine. Due on due Goal Tdap. Due on due Goal Tdap. Due on due Goal Td vaccine. Due on due Goal Depression screening. Due on due Goal Influenza vaccine. Due on due Goal Influenza vaccine. Due on due Goal Depression screening. Due on due Goal Td vaccine. Due on 19 due Goal Tdap. Due on due Goal Special diet education compl eted Goal Tdap. Due on due Goal Td vaccine. Due on 18 due Goal Depression screening. Due on due Goal Influenza vaccine. Due on due Goal Special diet education compl eted Goal Depression screening. Due on due Goal Td vaccine. Due on 17 due Goal Tdap. Due on due Goal Depression screening. Due on due Goal Td vaccine. Due on 16 due Goal Tdap. Due on due Goal Depression screening. Due on due Goal Td vaccine. Due on due Goal Tdap. Due on due Goal Depression screening. Due on due Goal Tdap. Due on due Goal Td vaccine. Due on 15 due Goal Depression screening. Due on due Goal Td vaccine. Due on due Goal Tdap. Due on due Goal Tobacco cessation counseling completed Referral Ordered: US EXAM, ABDOM, COMPLETE ordered Referral Ordered: Clinical Genetics () (related to Encntr for general adult medical exam w/o abnormal findings) ordered Referral Ordered: Referrals: Clinical Genetics (). Evaluate and treat ordered Referral Ordered: Pulmonology (related to Interstitial lung disease) ordered Referral Ordered: Referrals: Pulmonology. Evaluate and treat ordered Referral Ordered: CT THORAX W/O & W/DYE ordered Referral Ordered: CHEST X-RAY PA/LAT TWO-VIEWS ordered History Of Present Illness Encounter Date Complaint History Of Prese nt Illness platelet1 pt has borderlin e low platelet and also mild anemia. His MCV is normal Pt denies any bleeding or bruising Pt denies any abdominal pain or jaundice. He has mild anemia and low platelet since two years ago and his numbers are essentially stable. physical Pt needs annual physical pt has autism spectrum disorder with learning disability and mental retardation. pt has chronic anxiety and depression. Pt takes prozac and zyprexa and he has been doing stable. mom states that he is doing stable .Pt denies any change of behavior. Pt has history of mild anemia with low platelet .Pt denies any bleeding or bruising. Pt overall feels fine Pt has been diet and exercising and he lost some weight intentionally anxiety1 Pt has chronic a nxiety and depression Pt matamoros autism spectrum disorder. Pt takes prozac and zyprexa and he is doing ok usually but he is very afraid of going out on road trip with his parents. He becomes very anxious before going on road trip. Pt enjoys staying at home all the time but mom takes care of him all the time and she wants to take some road trip as well but her son does not do too well on road trip and he becomes very irritable at times. He took ativan which did help but it did not help him during most recent trip, Pt denies any suicidal or homicidal thought Pt denies any crying spells COVID Pt tested positi ve for COVID yesterday and he started to have fatigue, running nose, fever since 3 days ago. His fever is as high as 101. He has mild cough but no sob. Pt denies any GI issue. Pt has been taking tylenol which does help his symptoms. Pt is fully vaccinated and boosted. physical Pt needs annual physical pt has autism spectrum disorder with learning disability and mental retardation. pt has chronic anxiety and depression. Pt takes prozac and zyprexa and he has been doing stable. mom states that he is doing stable .Pt denies any change of behavior Pt denies any coughing, sob or hemoptysis Ptt denies any other complaints. Pt takes ativan PRn. Pt c/o mild facial rash on right side, which is sometimes scaly and itching. pt also has some dandruff on scalp.. Pt has above for several months. Pt denies any sick contact anxiety1 Pt has autism sp ectrum disorder with learning disability and mental retardation. pt has chronic anxiety and depression. Pt takes prozac and zyprexa and he has been doing stable. mom states that he is doing stable. Pt only used ativan handful of times when he meet new people or situation. mom states that he did very well with PRN ativan and he still has plenty of pills left. Insurance does not cover BID prozac? Pt denies any suicidal or homicidal thought anemia1 Pt has mild anem ia with normal iron Pt denies any blood loss platelet1 Pt has borderlin e low platelet .Pt denies any bleeding or bruising Pt denies any abd pain physical Pt needs annual physical pt has autism spectrum disorder with learning disability and mental retardation. pt has chronic anxiety and depression. Pt takes prozac and zyprexa and he has been doing stable. mom states that he is doing stable .Pt denies any change of behavior Pt denies any coughing, sob or hemoptysis Ptt denies any other complaints. His lab showed anemia and borderline low platelet. Pt denies any bleeding. Pt denies any bruising. Mom states that he overall doing ok but he freaks out every time he get around of people and go out of his house to visit any new place. Mom states that he is not able to enjoy things due to above. Physical Pt needs annual physical pt has autism spectrum disorder with learning disability and mental retardation. pt has chronic anxiety and depression. Pt takes prozac and zyprexa and he has been doing stable. mom states that he is doing stable .Pt denies any change of behavior Pt denies any coughing, sob or hemoptysis. pt denies any other complaints PHysical Pt needs annual physical pt has autism spectrum disorder with learning disability and mental retardation. pt has chronic anxiety and depression. Pt takes prozac and zyprexa and he has been doing stable. Father states that he remains at his baseline in terms of his mental state. Pt denies any complaints PHysical Pt needs annual physical. Pt has autism with developmental delay. pt has been taking prozac and zyprexa and doing ok Pt denies any suicidal or homicidal thought. Pt denies any crying spells. Pt has history of aspiration pneumonia Pt did speech therapy. Pt denies any sob or chest pain. Pt denies any other complaints PHysical Pt needs annual physical. Pt has autisum developmental disorder. Pt takes prozac and zyprexa and he is doing well. He has learning disabilty. Pt is not able to work. Pt states that his mood is stable Pt denie sany anger outburst. Pt has aspiratroy pneumonia and he sees pulmonary and he had speech therapy also. Pt does not want feeding tube. Pt basically was told to slow down when he eats. Pt denies any coughing. Pt has mild SOB with coughing spells, especially after he eats too fast. . Pt denies any chest pain fatigue1 Pt c/o fatigue c hronically .Pt states that he is tired all day. Pt sleeps later than other people and he wakes up late also. Pt plays with computer and watch TV at night. He snores a lot at night. He does not stop breathing at night vitamin D Pt has low vitam in D. Pt does take OTC supplement. Pt does not have a lot of sun exposure cough Associated sympt oms include cough, dyspnea and fatigue. Pertinent negatives include fever, heartburn, night sweats, sinus pressure, sore throat, weight loss and wheezing. Additional information: Pt has abnormal CT. He has chronic ground glass appearing and also chornic airway disease. Pt has left pleural effusion. Pt denies chest pain. Pt still coughing up phlegm now. Pt feels soB sometimes. Physical Pt needs annual physical. pt c/o coughing up green phlegm. low grade fever around 101 for 4 weeks. Pt denies any chest pain or SOB. Pt denies any recent travel. Pt takes prozac and zyprexa and doing ok. Pt is austic. Pt doing ok with prozac and zyprexa. pt denies any other complaints. Pt has not had any fever since 3 days ago. Pt denies any suicidal or homicidal thought cough Associated sympt oms include cough. Pertinent negatives include dyspnea, fatigue, fever, night sweats, sinus pressure, sore throat, weight loss and wheezing. Additional information: Pt c/o productive cough with clear phlem for one week. Pt has low grade beatrice around 100 Pt denies any recent travel or bedrest Pt does have sick contact. Pt denies any sore throat or any headahce. Pt denies any chest apin or SOB. lung scar Pt has persisten t and chronic scarring and some pleural effusion. Pt denies any chest pain or coughing or SOB hematuria Pt has hematuria . Pt had urine test done which was normal recently .No UTI symptoms autism Pt has autism Pt takes prozac and zyprexa. Pt doing ok Pt denies any hearing voices. NO suicidal thought Instructions Date Instruction Additional Infor mation Increase activity. Related to En cntr for general adult medical exam w/o abnormal findings Special diet education Related t o Body mass index (BMI) 30.0-30.9, adult Special diet education Related t o Body mass index (BMI) 29.0-29.9, adult Increase activity. Related to En cntr for general adult medical exam w/o abnormal findings Prescribed Activity and Exercise Education Related to Dietary Surveillance and Counseling Prescribed Diet Educ ation/Lifestyle Education Regarding Diet Related to Dietary Surveillance and Counseling Prescribed Activity and Exercise Education Related to Dietary Surveillance and Counseling Prescribed Diet Educ ation/Lifestyle Education Regarding Diet Related to Dietary Surveillance and Counseling Prescribed Activity and Exercise Education Related to Dietary Surveillance and Counseling Prescribed Diet Educ ation/Lifestyle Education Regarding Diet Related to Dietary Surveillance and Counseling Decrease caloric intake Related to Dietary surveillance counseling Physical activity counseling Rel ated to Dietary surveillance counseling Decrease caloric intake Related to Dietary surveillance counseling Physical activity counseling Rel ated to Dietary surveillance counseling Dietary counseling Related to Di etary surveillance counseling Decrease caloric intake Related to Dietary surveillance counseling Decrease caloric intake Related to Dietary surveillance counseling Dietary counseling Related to Di etary surveillance counseling Assessments Type Assessment Date No Information
--- OUTSIDE RECORDS SUMMARY | 2024-11-10 14:55 | XMS_ITS | Continuity of Care Document ---
Author Organization [facility] Address [address] [place] [address] Phone Care Team Providers Care Assistant Director Of Residence Life Name Role Phone Reed Schulz MD Unavailable Unavailable Allergies, Adverse Reactions, Alerts Substance Reaction Status Criticality No Known Allergies Active No Inform ation Medications Medication Instructions Dosage Effective Dates (start - stop) Status Comments fluoxetine 20 mg tablet take 1 tablet by oral route every day in the morning 20 MG - Active Zyprexa 20 mg tablet take 1 tablet by oral route every bedtime 20 MG - Active Xanax 0.5 mg [...] Diagnoses Date Provider Providers Copied on Encounter [facility], [address], [place], [place], [address], [place] tel:[phone] [facility] Medicine No Information 3 Zeus Mcbride. [address], [place], [place], [address] , [place]. tel:[phone] OFFICE/OUTPA TIENT VISIT, EST [facility], [address], [place], [place], [address], [place] tel:[phone] [facility] Medicine platelet1 (chief complaint) ThrombocytopeniaAne araseli 3 Zeus Parra [address], [place], [place], [address] , [place]. tel:[phone] PREV VISIT, EST, AGE 18-39 [facility], [address], [place], [place], [address], [place] tel:[phone] [facility] Medicine physical (chief complaint) Encounter for general adult medical examination without abnormal findings 3 Zeus Mcbride. [address], [place], [place], [address] , [place]. tel:[phone] OFFICE/OUTPA TIENT VISIT, EST [facility], [address], [place], [place], [address], [place] tel:[phone] [facility] Medicine anxiety1 (chief complaint) Generalized Anxiety Disorder 3 Zeus Mcbride. [address], [place], [place], [address] , [place]. tel:[phone] OFFICE/OUTPA TIENT VISIT, [facility], [address], [place], [place], [address], [place] tel:[phone] [facility] Medicine COVID (chief complaint) Viral infection 2 Zeus Mcbride. [address], [place], [place], [address] , [place]. [phone] PREV VISIT, EST, AGE 18-39 [facility], [address], [place], [place], [address], [place] tel:[phone] [facility] Medicine physical (chief complaint) Encounter for general adult medical examination without abnormal findings 2 Zeus Mcbride. [address], [place], [place], [address] , [place]. tel: [phone] OFFICE/OUTPA TIENT VISIT, EST [facility], [address], [place], [place], [address], [place] tel:[phone] [facility] anxiety1 (chief complaint) anemia1 (chief complaint) platelet1 (chief complaint) AnemiaThrombocytope niaGeneralized Anxiety Disorder 2 Zeus Mcbride. [address], [place], [place], [address] , [place]. tel:[phone] PREV VISIT, EST, AGE 18-39 [facility], [address], [place], [place], [address], [place] tel:[phone] [facility] Medicine physical (chief complaint) Encounter for general adult medical examination without abnormal findings 1 Zeus Mcbride. [address], [place], [place], [address] , [place]. tel:[phone] PREV VISIT, EST, AGE 18-39 [facility], [address], [place], [place], [address], [place] tel:[phone] [facility] Physical (chief complaint) Encntr for general adult medical exam w/o abnormal findings 0 Zeus Mcbride. [address], [place], [place], [address] , [place]. tel:[phone] PREV VISIT, EST, AGE 18-39 [facility], [address], [place], [place], [address], [place] tel:[phone] [facility] PHysical (chief complaint) Encntr for general adult medical exam w/o abnormal findings Dec-0 5- 9 Zeus Mcbride. [address], [place], [place], [address] , [place]. tel:[phone] Referring Provider: Corry Cochran [address], [place], [place], [address]. tel:[phone] PREV VISIT, EST, AGE 18-39 [facility], [address], [place], [place], [address], [place] tel:[phone] [facility] Medicine PHysical (chief complaint) Encntr for general adult medical exam w/o abnormal findings Nov-2 6- 8 Zeus Mcbride. [address], [place], [place], [address] , [place]. tel:[phone] Referring Provider: Corry Cochran [address], [place], [place], [address]. tel:[phone] PREV VISIT, EST, AGE 18-39 [facility], [address], [place], [place], [address], [place] tel:[phone] [facility] Medicine PHysical (chief complaint) Encntr for general adult medical exam w/o abnormal findings Nov-09 07- 7 Zeus Mcbride. [address], [place], [place], [address] , [place]. tel:[phone] Referring Provider: Corry Cochran [address], [place], [place], [address]. tel:[phone] OFFICE/OUTPA TIENT VISIT, EST [facility], [address], [place], [place], [address], [place] tel:[phone] [facility] Medicine fatigue1 (chief complaint) vitamin D (chief complaint) cough (chief complaint) FatigueSleep apneaInterstitial lung diseaseVitamin D deficiency, unspecified Dec- 8-201 6 Zeus Mcbride. [address], [place], [place], [address] , [place]. [phone] Referring Provider: Corry Cochran [address], [place], [place], [address]. tel:[phone] PREV VISIT, EST, AGE 18-39 [facility], [address], [place], [place], [address], [place] tel:[phone] [facility] Medicine Physical (chief complaint) Encounter for general adult medical exam w abnormal findingsAcute bronchitisAnemiaAut istic disorder 6 Zeus Mcbride. [address], [place], [place], [address] , [place]. [phone] Referring Provider: Corry Cochran [address], [place], [place], [address]. tel:[phone] OFFICE/OUTPA TIENT VISIT, [facility], [facility] [address], [place], [place], [address], [place] tel:[phone] [facility] cough (chief complaint) Acute bronchitisDietary surveillance and counseling 5 Zeus Mcbride. [address], [place], [place], [address] , [place]. [phone] Referring Provider: Corry Cochran [address], [place], [place], [address]. tel:[phone] OFFICE/OUTPA TIENT VISIT, [facility], [address], [place], [place], [address], [place] tel:[phone] [facility] lung scar (chief complaint) hematuria (chief complaint) autism (chief complaint) Abnormal chest xrayAutistic disorder, current or active stateBlood pressure elevated 5 Zeus Mcbride. [address], [place], [place], [address] , [place]. [phone] Referring Provider: Corry Cochran [address], [place], [place], [address]. tel:[phone] OFFICE/OUTPA TIENT VISIT, [facility], [address], [place], [place], [address], [place] tel:[phone] [facility] pneumonia (chief complaint) anemia (chief complaint) PneumoniaAnemiaUnsp ecified vitamin d deficiencyDietary surveillance and counseling 5 Zeus Mcbride. [address], [place], [place], [address] , [place]. tel:[phone] Referring Provider: Reed Schulz, [address], [place], [place], [address]. tel:[phone] OFFICE/OUTPA TIENT VISIT, [facility], [address], [place], [place], [address], [place] tel:[phone] [facility] pneumonia (chief complaint) autism (chief complaint) anemia (chief complaint) Dietary surveillance and counselingAnemiaAut istic disorder, current or active statePneumonia 5 Zeus Mcbride. [address], [place], [place], [address] , [place]. tel:[phone] Referring Provider: Corry Cochran [address], [place], [place], [address]. tel:[phone] OFFICE/OUTPA TIENT VISIT, [facility], [address], [place], [place], [address], [place] tel:[phone] [facility] anemia (chief complaint) vitamin D (chief complaint) TG (chief complaint) autism (chief complaint) AnemiaOther and unspecified hyperlipidemiaUnspe cified vitamin d deficiencyAutistic disorder, current or active stateDietary surveillance and counseling 4 Zeus Mcbride. [address], [place], [place], [address] , [place]. tel:[phone] Referring Provider: Corry Cochran [address], [place], [place], [address]. tel:[phone] PREV VISIT, NEW, AGE 18-39 [facility], [address], [place], [place], [address], [place] tel:[phone] [facility] Physical (chief complaint) Dietary surveillance and counselingRoutine Medical ExamRoutine Medical Exam Gio Parra [address], [place], [place], [address] , [place]. tel: [phone] Family History Family Member Type Diagnosis Age At Onset Mother Problem (finding) Alive and well Brother Problem (finding) Alive and well Father Problem (finding) Alive and well Payers Payer name Insurance type Covered alliance party ID Authoriza tion(s) No Information Social History [...] thought Instructions Date Instruction Additional Infor mation Special diet education Related t o Body mass index (BMI) 30.0-30.9, adult Increase activity. Related to En cntr [...] Diet Related to Dietary Surveillance and Counseling Physical activity counseling Rel ated to Dietary [...] caloric intake Related to Dietary surveillance counseling Assessments Type Assessment Date No Information
== END 2024-11-10 13:50 | disposition home or self-care (01) ==
PROVIDERS: Emergency Provider Nurse Practitioner Family; PCP Physician Assistant
DX: H66.92 Otitis media, unspecified, left ear (principal); H72.92 Unspecified perforation of tympanic membrane, left ear; J18.9 Pneumonia, unspecified organism; H60.312 Diffuse otitis externa, left ear
CPT/HCPCS: 71046; 94640; 99213; G0463